=== PATIENT | male | born 1980 | race African-American/Black ===

== ENCOUNTER 2016-06-07 09:17 | Emergency (ER) ==
[2016-06-07 09:59] LABS: MANUAL DIFF NEEDED? NO
[2016-06-07 10:22] LABS: BASO% 0.6 % (0.0-0.8); EOS# 0.09 X1000 (0.0-0.7); EOS% 1.4 % (0.0-10.0); HEMATOCRIT 44.6 % (42.0-52.0); HEMOGLOBIN 15.2 g/dL (14.0-18.0); IMM GRAN# 0.02 X1000 (0.0-0.04); IMM GRAN% 0.3 % (0.0-0.5); LYMPH# 0.87 X1000 (1.2-3.4); LYMPH% 13.1 % (20.5-51.1); MCHC 34.1 g/dL (33-37); MCV 88.1 FL (81-99); MONO# 0.68 X1000 (0.11-0.59); MONO% 10.3 % (1.7-9.3); MPV 9.2 FL (7.4-10.4); NEUT% 74.3 % (42.2-75.2); PLT 274 X1000 (130-400); RBC 5.06 XMIL (4.7-6.1)
[2016-06-07 10:38] LABS: AGAP 15; ALBUMIN 4.3 g/dL (3.5-5.0); ALKALINE PHOSPHATASE 81 U/L (32-122); AMYLASE 42 U/L (20-200); BUN 9 mg/dL (8-22); CALCIUM 9.7 mg/dL (8.8-10.2); CHLORIDE 100 mmol/L (98-107); COSMO 272; GOT 31 U/L (10-34); GPT 27 U/L (10-44); LIPASE 16 U/L (13-60); POTASSIUM 4.1 mmol/L (3.5-5.1); SODIUM 137 mmol/L (136-145); TCO2 22 mmol/L (25-35); TOTAL BILIRUBIN 0.58 mg/dL (0.20-1.00); TOTAL PROTEIN 7.8 g/dL (6.3-8.3)
[2016-06-07 10:58] LABS: URINE CULTURE NEEDED? NO; URINE MICRO REVIEW NEEDED? NO; URINE SOURCE CLEAN CATCH
[2016-06-07 11:03] LABS: BILIRUBIN URINE NEGATIVE (NEGATIVE); BLOOD URINE NEGATIVE (NEGATIVE); COLOR YELLOW; GLUCOSE URINE NEGATIVE (NEGATIVE); LEUKOCYTES URINE NEGATIVE (NEGATIVE); NITRITE URINE NEGATIVE (NEGATIVE); PH URINE 5.5; PROTEIN URINE NEGATIVE (NEGATIVE); SP GRAVITY URINE 1.007; TURBIDITY URINE CLEAR (CLEAR); UR EPITHELIAL CELLS <10 /HPF (<10); URINE BACTERIA NEGATIVE /HPF; URINE RBC <10 /HPF (<10); URINE WBC <10 /HPF (<10); UROBILINOGEN URINE NORMAL (NORMAL)
[2016-06-07] MEDS ORDERED: MORPHINE IM ONE (11:08)
[2016-06-07] MEDS ORDERED: PHENERGAN IM ONE (11:08)
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
[2016-06-07 11:48] LABS: UR AMPHETAMINES QUAL NONE DETECTED (NONE DETECT); UR BARBITUATES QUAL NONE DETECTED (NONE DETECT); UR BENZODIAZEPIN QUAL NONE DETECTED (NONE DETECT); UR CANNABINOIDS QUAL PRESUMPTIVE POSITIVE (NONE DETECT); UR COCAINE QUAL NONE DETECTED (NONE DETECT); UR METHADONE QUAL NONE DETECTED (NONE DETECT); UR OPIATES QUAL NONE DETECTED (NONE DETECT); UR OXYCODONE QUAL NONE DETECTED (NONE DETECT); UR PCP QUAL NONE DETECTED (NONE DETECT)
--- NOTE | 2016-06-07 12:52 | Diag Imaging Result Document ---
PROCEDURE NAME: THORAX/ABDOMEN/PELVIS W/O CONT - 06/07/2016 CT OF THE CHEST WITHOUT CONTRAST: FINDINGS: There is pleural thickening and pleural-based stranding in the left costophrenic sulcus posteriorly of uncertain significance. There are no previous studies. There is a calcified granuloma in the right upper lobe. No abnormal fluid collections are present. There is no evidence of significant adenopathy. IMPRESSION: 1. Atelectasis and/or fibrosis in the left costophrenic sulcus. 2. Old granulomatous changes.
[2016-06-07 13:06] VITALS: BP 128/73
== END 2016-06-07 13:29 | disposition home or self-care (01) ==
LOC: ED 09:17
DX: J40 Bronchitis, not specified as acute or chronic (principal); J98.11 Atelectasis; R10.9 Unspecified abdominal pain; R05 Cough; R11.0 Nausea; R07.1 Chest pain on breathing; R50.9 Fever, unspecified; R00.0 Tachycardia, unspecified; R10.819 Abdominal tenderness, unspecified site; F17.210 Nicotine dependence, cigarettes, uncomplicated; Z71.6 Tobacco abuse counseling
CPT/HCPCS: 71250; 74176; 80053; 81001; 82150; 83690; 85025; 87804; G0480; J2270; J2550; 80324; 80345; 80346; 80349; 80353; 80358; 80361; 80365; 83992